=== PATIENT | male | born 1980 | race Caucasian/White ===

== ENCOUNTER 2020-01-19 01:29 | Observation (INO) | payer SELFPAY ==
[2020-01-19] VITALS (10 sets, daily range): BP systolic 158–245; BP diastolic 93–172; PULSE 81–113; RESP 14–24; TEMP 36.3–36.7; O2SAT 95–97; BMI 33.2
--- NOTE | 2020-01-19 01:41 | ED_ITS ---
Entered by Shari Lala, acting as scribe for Александр Hebert MD HPI - Abdominal Pain General: Chief Complaint: Abdominal Pain Stated Complaint: abd pain and pressure Time Seen by Provider: 01/19/20 01:38 Source: patient and family History of Present Illness: HPI narrative: 39 y/o male presents to the ED with complaint of abd pain. Pt states he feels like his intestines are trying to come out of his belly button . Family states this has been progressing for the past 4-5 days. He has no previous dx of hernia or abd pain. Pt also has chronic high BP and states the pain seems to be making that worse. Upon exam, pts BP is 244/142. MD elicited complaint: abdominal pain Pertinent past history: none Onset (ago): day(s) (4-5) Pain Consistency: constant Location: Periumbilical Severity: severe Exacerbating factors: movement Associated Symptoms: Denies chills, diarrhea, dysuria, fever(s), nausea and vomiting Review of Systems Const: Denies: fever, chills, body aches or change in appetite Eyes: Denies: blurry vision or eye discomfort ENMT: Denies: throat pain or dental pain Card: Denies: chest pain Resp: Denies: shortness of breath GI: Reports: abdominal pain; Denies: nausea, vomiting or diarrhea : Denies: painful urination Musc: Denies: neck pain or back pain Skin/Breast: Denies: rash Neuro: Denies: headache Psych: Denies: depression Moreno/Lymph: Denies: easy bruising All/Imm: Denies: hives PFSH ED PFSH: Social History Smoking and tobacco status: current every day smoker Physical Exam Const: COMMON NORMALS: oriented x3; apparent distress GENERAL APPEARANCE: other (in pain) NUTRITIONAL APPEARANCE: obese HENMT: COMMON NORMALS: normocephalic and head/scalp atraumatic HEAD & SCALP: normocephalic and atraumatic Eye: COMMON NORMALS: PERRL and EOMs intact bilaterally PUPIL: Yes PERRL Neck/C-Spine: COMMON NORMALS: full ROM and supple Chest: COMMONS NORMALS: inspection of chest normal and palpation of chest normal Resp: COMMON NORMALS: normal respiratory effort, no retractions, no use of accessory muscles and clear to auscultation bilaterally AUSCULTATION: clear to auscultation bilaterally Cardio: COMMON NORMALS: regular rate, regular rhythm and no murmurs RATE: regular rate RHYTHM: regular rhythm OTHER: elevated BP GI: PALPATION: Yes tender and Yes hernia umbilical Extremity: COMMON NORMALS: normal to inspection and full ROM Neuro: COMMON NORMALS: oriented x3, moves all extremities and no focal motor deficits Psych: COMMON NORMALS: mental status grossly normal, thought process normal and cooperative MOOD & AFFECT: Yes tearful THOUGHT PROCESS: normal thought process Skin: COMMON NORMALS: no rashes or lesions noted and no wounds GENERAL SKIN EXAM: no rashes or lesions noted Course Vital Signs: Vital signs: Vital Signs Temperature 98 F 01/19/20 01:33 Pulse Rate 100 01/19/20 02:07 Respiratory Rate 18 01/19/20 04:05 Blood Pressure 222/146 01/19/20 02:07 Pulse Oximetry 96 01/19/20 02:07 MDM - Abdominal Pain MDM Narrative: Medical decision making narrative: Patient presents here with abdominal pain. CT shows pancreatitis but does have a low normal lipase level. He has no signs of cholecystitis. Patient is quite hypertensive and was treated with labetalol and hydralazine and blood pressure is improving 186/102. Abdominal pain is continued and required multiple pain medicine doses. Spoke to hospitalist and will admit for his abdominal pain. Lab Data: Labs: Lab Results 01/19/20 01/19/20 01/19/20 Range/Units 01:40 01:40 03:57 WBC 15.2 H (4.0-10.0) 10^3/ uL RBC 5.23 (4.1-5.3) 10^6/u L Hgb 14.8 (11.7-16.6) g/dL Hct 44.3 (42.0-52.0) % MCV 84.7 (80-94) fL MCH 28.3 (28.0-34.0) pg MCHC 33.4 (30.0-36.0) g/dL RDW 13.5 (12.1-15.1) % Plt Count 264 (130-400) 10^3/c mm MPV 10.7 H (7.4-10.4) fL Neut % (Auto) 68.8 % Lymph % (Auto) 21.9 % Bulloch % (Auto) 6.7 % Eos % (Auto) 1.9 % Baso % (Auto) 0.3 % Neut # (Auto) 10.4 H (1.8-7.7) 10^3/u L Lymph # (Auto) 3.3 (0.8-4.8) 10^3/u L Bulloch # (Auto) 1.0 H (0.2-0.9) 10^3/u L Eos # (Auto) 0.3 (0.0-0.8) 10^3/u L Baso # (Auto) 0.1 (0.0-0.1) 10^3/u L Nucleated RBC % (a uto) 0 % Nucleated RBCs # 0.0 /100WBC Sodium 138 (136-145) mmol/L Potassium 3.4 L (3.5-5.1) mmol/L Chloride 102 (98-107) mmol/L Carbon Dioxide 23 (22-29) mmol/L Anion Gap 16.4 (5-19) BUN 15 (6-20) mg/dL Creatinine 1.0 (0.7-1.2) mg/dL GFR Calculation 84.1 L (90-130) mL/min Glucose 192 H (65-115) mg/dL Calcium 9.4 (8.5-10.5) mg/dL Total Bilirubin 0.4 (0.15-1.2) mg/dL AST 14 (0-40) U/L ALT 31 (0-41) U/L Alkaline Phosphata se 66 (40-130) IU/L Total Protein 7.6 (6.6-8.7) g/dL Albumin 4.1 (3.5-5.2) g/dL Globulin 3.5 (1.3-4.6) g/dL Lipase 27 23 (13-60) U/L Imaging Data ^: CT Abd/Pel: Radiologist's impression: [address] [address] [address] Scan Report Signed Patient: Butch Parisi #: [id number] : 1980Acct#:[id number] Age/Sex: 39 / MADM Date: 01/19/20 Loc: ERRoom/Bed: Attending Dr: Ordering Provider/Ordering MD: Александр Hebert MD Date of Service: 01/19/20 Procedure(s): CT abdomen pelvis w con* [id number] Accession Number(s): [id number] Report Number: [id number] PROCEDURE INFORMATION: Exam: CT Abdomen And Pelvis With Contrast Exam date and time: 01/19/2020 1:50 AM Age: 39 years old Clinical indication: Abdominal pain; Epigastric; Additional info: Abd pain TECHNIQUE: Imaging protocol: Computed tomography of the abdomen and pelvis with intravenous contrast. Total DLP: 1698.89 mGy-cm Radiation optimization: All CT scans at this facility use at least one of these dose optimization techniques: automated exposure control; mA and/or kV adjustment per patient size (includes targeted exams where dose is matched to clinical indication); or iterative reconstruction. Contrast material: OMNI 300; Contrast volume: 95 ml; Contrast route: 18G; COMPARISON: No relevant prior studies available. FINDINGS: Liver: Fatty liver. Gallbladder and bile ducts: No calcified stones. No ductal dilation. Pancreas: There is peripancreatic stranding about the pancreatic head. No ductal dilation. Spleen: No splenomegaly. Adrenals: No mass. Kidneys and ureters: No hydronephrosis. Stomach and bowel: Colonic diverticulosis without findings of diverticulitis. Fluid-filled loops of small bowel which may represent reactive ileus. No high-grade bowel obstruction. Minimal stranding adjacent to the proximal duodenum probably representing reactive duodenitis. Appendix: No evidence of appendicitis. Intraperitoneal space: No free air. No significant fluid collection. Vasculature: No abdominal aortic aneurysm. Lymph nodes: No enlarged lymph nodes. Bladder: Unremarkable as visualized. Reproductive: Unremarkable as visualized. Bones/joints: Unremarkable. No acute fracture. Soft tissues: Unremarkable. CT/CT abdomen pelvis w con* [id number] IMPRESSION: Acute pancreatitis. Probable mild reactive duodenitis. Radiation Dose CTDIVOL = (mGy): DLP = 1698.89 (mGy-cm) EKG Data ^: EKG 1: EKG interpretation date: 01/19/20 EKG interpretation time: 01:55 Interpretation: sinus tach hr 105 st depressin in ii and iii with no st elevation qrs 105 qtc 407 Discharge Plan Discharge Patient Disposition: Admitted As Inpatient Clinical Impression: Abdominal pain Qualifiers: Abdominal location: epigastric Qualified Code(s): R10.13 - Epigastric pain Hypertension Qualifiers: Hypertension type: essential hypertension Qualified Code(s): I10 - Essential (primary) hypertension Condition: Stable Referrals: Giovanny Hernandez NP [Primary Care Provider] - Coding Level of Care Code ED Music Director for Chg Fwd Exam Comprehensive The documentation recorded by the Spike moore Ashley, accurately reflects the service I personally performed and the decisions made by , Александр Hebert MD Jan 19, 2020 01:29
[2020-01-19 01:44] LABS: Basophils # 0.1 10^3/uL (0.0-0.1); Basophils % 0.3 %; Eosinophils # 0.3 10^3/uL (0.0-0.8); Eosinophils % 1.9 %; Hematocrit 44.3 % (42.0-52.0); Hemoglobin 14.8 g/dL (11.7-16.6); Lymphocytes # 3.3 10^3/uL (0.8-4.8); Lymphocytes % 21.9 %; Mean Corpuscular HGB Conc 33.4 g/dL (30.0-36.0); Mean Corpuscular Hemoglobin 28.3 pg (28.0-34.0); Mean Corpuscular Volume 84.7 fL (80-94); Mean Platelet Volume 10.7 fL (7.4-10.4); Monocytes % 6.7 %; Neutrophils # 10.4 10^3/uL (1.8-7.7); Neutrophils % 68.8 %; Nucleated Red Blood Cells % 0 %; Platelet Count 264 10^3/cmm (130-400); Red Blood Count 5.23 10^6/uL (4.1-5.3); Red Cell Distribution Width 13.5 % (12.1-15.1); White Blood Count 15.2 10^3/uL (4.0-10.0)
[2020-01-19] MEDS: lactated ringers 1,000 ML 999 ML IV (01:56)
[2020-01-19] MEDS: ondansetron 2 mg/ML SDV 2 mL 4 MG IVP (01:57)
[2020-01-19] MEDS: HYDROmorphone 1 mg/mL INJ 1 mL IVP ×2 (01:57→04:05)
[2020-01-19 01:58] LABS: Alanine Aminotransferase 31 U/L (0-41); Albumin Level 4.1 g/dL (3.5-5.2); Alkaline Phosphatase 66 IU/L (40-130); Anion Gap 16.4 (5-19); Aspartate Amino Transferase 14 U/L (0-40); Blood Urea Nitrogen 15 mg/dL (6-20); Calcium 9.4 mg/dL (8.5-10.5); Carbon Dioxide 23 mmol/L (22-29); Chloride 102 mmol/L (98-107); Globulin 3.5 g/dL (1.3-4.6); Glomerular Filtration Rate 84.1 mL/min (90-130); Glucose 192 mg/dL (65-115); Lipase 27 U/L (13-60); Potassium 3.4 mmol/L (3.5-5.1); Sodium 138 mmol/L (136-145); Total Bilirubin 0.4 mg/dL (0.15-1.2); Total Protein 7.6 g/dL (6.6-8.7)
[2020-01-19] MEDS: iohexol 300 mg/mL 100 mL Btl IV (02:39)
[2020-01-19] MEDS: labetalol 5 mg/mL SDV 20mL 20 MG IVP (03:01)
[2020-01-19] MEDS: hyDRALAzine 20 mg/mL INJ 1 mL 10 MG IVP ×2 (03:57→11:37)
[2020-01-19 04:21] LABS: Lipase 23 U/L (13-60)
--- NOTE | 2020-01-19 04:32 | PM.HP ---
Providers/Chief Complaint Primary Care Provider: Giovanny Hernandez NP Chief Complaint: abd pain and pressure History of Present Illness Alli Parisi is a 39 year old male who does not carry any significant past medical history other than hypertension came in with chief complaint abdominal pain. Patient is stating that his symptoms started 5 days ago. He was at rest when he started experiencing nagging epigastric abdominal pain which was 10/10 it was not associated with nausea, vomiting, fever, diarrhea, constipation. He did not seek medical attention until today when his symptoms were getting worse. His epigastric pain was radiating towards his back and umbilical region. Today he ate steak and rice and did not experience it worsening of abdominal pain, he has been drinking a lot of apple juice at home. He is smoking 1 pack/day. Denies use of alcohol, previous history of pancreatitis, gallstones. For his hypertension he has been using metoprolol and lisinopril. Diagnostics in ER showed hypertensive urgency systolic blood pressure 220/147 which improved after getting analgesics, lipase is normal however CT abdomen is showing pancreatic inflammation. Leukocytosis greater than 15, he is not tachycardic, afebrile, creatinine normal, hypokalemic, non-acidotic, BUN 15, glucose 192, Review of Systems Const: Denies: fever, chills, body aches, fatigue or malaise Eyes: Denies: change in vision ENMT: Denies: throat pain Card: Denies: chest pain Resp: Denies: shortness of breath GI: Reports: abdominal pain, bloating and cramping; Denies: nausea, vomiting, vomiting blood, coffee grounds in vomit, difficulty swallowing, heartburn/indigestion or constipation : Denies: flank pain or urinary frequency Musc: Denies: neck pain Skin/Breast: Denies: rash Neuro: Denies: headache Psych: Denies: anxiety Endo: Reports: hot flashes and heat intolerance Moreno/Lymph: Reports: easy bruising All/Imm: Denies: hives Medications/Allergies Home Medications Medication Instructions Recorded Confirmed Last Taken Type aspirin [Aspir-81] 81 mg PO DAILY 01/19/20 01/19/20 Unknown History lisinopril 2.5 mg PO DAILY 01/19/20 01/19/20 Unknown History metoprolol succinate 25 mg PO BID 01/19/20 01/19/20 Unknown History Allergies Allergy/AdvReac Type Severity Reaction Status Date / Time No Known Allergies Allergy Verified 01/19/20 01:38 PFSH Acute PFSH: Medical History (Updated 01/19/20 @ 05:18 by Del Rai MD) Hypertension Surgical History (Updated 01/19/20 @ 05:18 by Del Rai MD) Previous back surgery Family History (Updated 01/19/20 @ 05:18 by Del Rai MD) Denies family history of Diabetes CAD (coronary artery disease) Dementia Chronic kidney disease (CKD) Anesthesia complication Bleeding disorder Social History (Updated 01/19/20 @ 05:19 by Del Rai MD) Smoking and tobacco status: current every day smoker cigarettes Packs smoked per day: 1 Years cigarettes smoked: 30 Alcohol intake: never Substance/Drug Use: never Household members: spouse Housing: House Marital status: Vitals/I&O/Wt Last Vital Signs Temp 98 F 01/19/20 01:33 Pulse 100 01/19/20 02:07 Resp 18 01/19/20 04:05 BP 222/146 01/19/20 02:07 Pulse Ox 96 01/19/20 02:07 01/18/20 01/18/20 01/19/20 14:59 22:59 06:59 Intake Total 1000 / 1000 Balance 1000 / 1000 Weight last 48 hrs Weight 111.13 kg Physical Exam Narrative: EXAM NARRATIVE: obese male comfortable in his bed saturating well on room air Systolic blood pressure 186 Patient is endorsing that abdominal pain has subsided after getting analgesics, abdomen is nontender, however abdominal stria positive, umbilical hernia positive, no signs of peritonitis, epigastric region nontender, Pack sign negative, Bowel sounds present, S1-S2, no signs of heart failure, JVD or lower extremity edema Lungs are clear to auscultation Skin exam shows multiple stria, cushingoid appearance, Multiple skin tattoos Appropriate mood and affect Data : 01/19/20 01:40 01/19/20 01:40 A&P Assessment and plan (1) Abdominal pain: Status: Acute Qualifiers: Abdominal location: epigastric Qualified Code(s): R10.13 - Epigastric pain Code(s): R10.9 - Unspecified abdominal pain (2) Hypertension: Status: Acute Qualifiers: Hypertension type: essential hypertension Qualified Code(s): I10 - Essential (primary) hypertension Code(s): I10 - Essential (primary) hypertension Additional A&P Information Acute pancreatitis with normal lipase Harry criteria will be very low considering normal BUN, glucose, he has leukocytosis greater than 15 however able to tolerate his regular diet, For now I will put him on full liquid diet and advance as tolerated On literature review there are couple of cases which are reported with normal lipase with pancreatitis Cause of pancreatitis is unknown, he is a smoker, no use of alcohol, no gallstones, he is using metoprolol which has been associated with pancreatitis, no previous history of pancreatitis, I will check his triglyceride level Hypertension with hypokalemia We will check a renin aldosterone level He has cushingoid appearance I would like to rule out cushingoid syndrome, ordered 1 mg dexamethasone test at 11 PM today and will check serum cortisol at 8 AM next morning Hold metoprolol For his hypertension I would use amlodipine and lisinopril for now Check A1c level along lipid panel Obesity: Patient was counseled on weight reduction and benefits on his blood pressure He Is trying to eat healthier DVT prophylaxis: Lovenox Considering hypertension I would avoid use of fluids for now Full code Attestations Medical Necessity Statement*: Anticipating discharge in less than 48 hours, he has mild episode of pancreatitis currently doing well Time Spent in Patient Care: 45 Coding Level of Care Code Acute Grain Thresher for Brent Carranza Diagnoses Abdominal pain R10.13 Abdominal location: epigastric Hypertension I10 Hypertension type: essential hypertension
[2020-01-19] MEDS: enoxaparin 40 mg/0.4 mL Syringe SUBCUT (05:35)
[2020-01-19 05:49] LABS: Chol HDL Ratio 4.03 mg/dL (1.0-5.00); Cholesterol 153 mg/dL (0-200); HDL Cholesterol 38 mg/dL (60-100); LDL Cholesterol Calculated 90 mg/dL (50-129); LDL HDL Ratio 2.37 RATIO (0.00-3.22); Triglycerides 124 mg/dL (0-150)
[2020-01-19 05:51] LABS: Estmated Average Glucose 123; Hemoglobin A1C 5.9 % (4.0-6.0)
[2020-01-19] MEDS: amlodipine 10 mg Tablet PO (08:10)
[2020-01-19] MEDS: lisinopril 20 mg Tablet PO (08:10)
[2020-01-19] MEDS: morphine 4 mg/mL SDV 1 mL 2 MG IVP (10:33)
--- NOTE | 2020-01-19 13:31 | P.DS_ITS ---
Discharge Providers Date of Admission: 01/19/20 04:32 Date of Discharge: January 19, 2020 Attending Provider at Admission: Del Rai MD Attending Provider at Discharge: Annie Lehman MD Primary Care Provider: Giovanny Hernandez NP Diagnoses at Discharge Discharge Diagnosis (1) Abdominal pain: Status: Acute Qualifiers: Abdominal location: epigastric Qualified Code(s): R10.13 - Epigastric pain (2) Hypertension: Status: Acute Qualifiers: Hypertension type: essential hypertension Qualified Code(s): I10 - Essential (primary) hypertension Reason for Visit Reason for Visit: Reason For Visit: abd pain and pressure Hospital Course Discharge Summary: Alli Parisi is a 39 year old male with persistent hypertension (states outpatient BP >200mmhg) came in last night with chief complaint of abdominal pain started 5 days ago. He was noted to have significantly elevated blood pressure of 220/147. CT of the abdomen was done which showed peripancreatic stranding about the pancreatic head without ductal dilatation with overall impression of acute pancreatitis and probable mild reactive duodenitis. By the next morning, patient denies any complaints of abdominal pain nausea or vomiting. He tolerated clear liquid diet and insisted on getting a full meal. He did get a regular meal and tolerated it well without any adverse events. For his blood pressure, this remains consistently elevated above 205/124. He received amlodipine, lisinopril and iv hydralazine. This dropped his blood pressure to the best number of systolic of 173. Patient insisted on returning home today and did not wish to stay in the hospital any longer. It was strongly counseled that the blood pressure be brought under better control, however he states that this is been an ongoing work in progress as an outpatient. He routinely has blood pressures over 200 and has previously had anginal-like symptoms, however states that this does not bother him and insists on returning home in spite of counseling. He was also advised to undergo a repeat CBC to follow-up on leukocytosis of 15 especially given the pancreatic inflammation noted on CT, however he declined this as well. It is been counseled that this is a high risk discharge only per patient request and he should have close follow-up with his primary care provider in the next 1 to 3 days. He states he will make appointment for the same. Advised to keep a blood pressure chart at home. New medication hydralazine has been added. Physical Exam Narrative: EXAM NARRATIVE: GEN: Awake, alert and oriented, no acute distress CVS: S1S2 N RS: CTA B/L Abd: Soft, nt/nd , bs+ DIRECTOR OF DATABASE MARKETING: no focal neuro deficits Discharge Data Data Completed and Pending: Completed Studies During Hospitalization Category Date Time Status CT abdomen pelvis w con* [id number] Urge nt Cat Scan 01/19/20 01:43 Completed Pending at discharge Category Date Time Status Aldosterone Stat Lab 01/19/20 01:40 Received Complete Blood Co unt w/Auto AM LABS Lab 01/20/20 04:00 Ordered Complete Blood Co unt w/Auto Stat Lab 01/19/20 13:17 Ordered Comprehensive Met abolic Panel AM LA BS Lab 01/20/20 04:00 Ordered Cortisol ,Free,LC /MS, S Routine Lab 01/20/20 08:00 Ordered Labs from last 24 hours 01/19/20 01/19/20 01/19/20 03:57 01:40 01:40 WBC RBC Hgb Hct MCV MCH MCHC RDW Plt Count MPV Neut % (Auto) Lymph % (Auto) [place] % (Auto) Eos % (Auto) Baso % (Auto) Neut # (Auto) Lymph # (Auto) [place] # (Auto) Eos # (Auto) Baso # (Auto) Nucleated RBC % (a uto) Nucleated RBCs # Sodium Potassium Chloride Carbon Dioxide Anion Gap BUN Creatinine GFR Calculation Glucose Estimat Average Gl ucose 123 Hemoglobin A1c 5.9 Calcium Total Bilirubin AST ALT Alkaline Phosphata se Total Protein Albumin Globulin Triglycerides 124 Cholesterol 153 LDL Cholesterol, C alc 90 HDL Cholesterol 38 L LDL/HDL Ratio 2.37 Cholesterol/HDL Ra james 4.03 Lipase 23 01/19/20 01/19/20 01:40 01:40 WBC 15.2 H RBC 5.23 Hgb 14.8 Hct 44.3 MCV 84.7 MCH 28.3 MCHC 33.4 RDW 13.5 Plt Count 264 MPV 10.7 H Neut % (Auto) 68.8 Lymph % (Auto) 21.9 [place] % (Auto) 6.7 Eos % (Auto) 1.9 Baso % (Auto) 0.3 Neut # (Auto) 10.4 H Lymph # (Auto) 3.3 [place] # (Auto) 1.0 H Eos # (Auto) 0.3 Baso # (Auto) 0.1 Nucleated RBC % (a uto) 0 Nucleated RBCs # 0.0 Sodium 138 Potassium 3.4 L Chloride 102 Carbon Dioxide 23 Anion Gap 16.4 BUN 15 Creatinine 1.0 GFR Calculation 84.1 L Glucose 192 H Estimat Average Gl ucose Hemoglobin A1c Calcium 9.4 Total Bilirubin 0.4 AST 14 ALT 31 Alkaline Phosphata se 66 Total Protein 7.6 Albumin 4.1 Globulin 3.5 Triglycerides Cholesterol LDL Cholesterol, C alc HDL Cholesterol LDL/HDL Ratio Cholesterol/HDL Ra james Lipase 27 Vitals: Last Vital Signs Temp 98.1 F 01/19/20 11:01 Pulse 87 01/19/20 11:01 Resp 18 01/19/20 11:01 BP 205/124 01/19/20 11:01 Pulse Ox 97 01/19/20 11:01 Discharge Plan Discharge Patient Disposition: Home, Self-Care Condition: Stable Prescriptions: New amlodipine 10 mg Tablet 10 mg PO DAILY 30 Days Qty: 30 RF: 0 hydralazine 10 mg tablet 10 mg PO TID 30 Days Qty: 90 RF: 0 Continued Aspir-81 81 mg Tablet,Delayed Release (Dr/Ec) 81 mg PO DAILY RF: 0 metoprolol succinate 25 mg Tablet Extended Release 24 Hr 25 mg PO BID RF: 0 lovastatin 10 mg Tablet 10 mg PO DAILY RF: 0 lisinopril 20 mg Tablet 2.5 mg PO DAILY Qty: 0 RF: 0 Discharge Orders: Discharge Order (Routine); Ordered 01/19/20 Ordered By: Annie Lehman Referrals: Giovanny Hernandez NP [Primary Care Provider] - 01/21/20 9:30 am Discharge Diet: Cardiac and Low Salt Discharge Activity: Resume usual activity Activity Restrictions/Additional Instructions: strongly advised to maintain BP chart at least twice daily and close follow up with primary care provider in the next 1-3 days. Discharge Attestations Time Spent in Discharge Care*: less than 30 min Quality Metrics Clinical Quality Measures During this hospital stay, did patient experience: None Coding Level of Care Code Acute Log Handling Equipment Operator for Chg Fwd Diagnoses Abdominal pain R10.13 Abdominal location: epigastric Hypertension I10 Hypertension type: essential hypertension
== END 2020-01-19 13:50 | disposition home or self-care (01) ==
LOC: ER 04:41 → MEDSURG 06:09
PROVIDERS: Admitting Provider Internal Medicine; Emergency Provider Emergency Medicine; PCP Nurse Practitioner Family; Visit Provider Student in an Organized Health Care Education/Training Program
DX: R10.13 Epigastric pain (principal); I10 Essential (primary) hypertension; Z79.82 Long term (current) use of aspirin; F17.210 Nicotine dependence, cigarettes, uncomplicated
CPT/HCPCS: 12345; 36415; 74177; 80053; 80061; 82088; 83036; 83690; 85025; 96360; 96365; 96372; 96374; 96375; 96376; 99283; 99285; G0378; J0360; J1170; J1650; J2270; J2405; J3490; Q9967

== ENCOUNTER → 2020-04-03 11:00 | Outpatient (BNVA) | payer SELFPAY | PROVIDERS: PCP Nurse Practitioner Family; Visit Provider Nurse Practitioner Family | DX: I10 Essential (primary) hypertension (principal); I50.9 Heart failure, unspecified | CPT/HCPCS: 80053; 81001; 82306; 84439; 84443; 84481; 85025 ==

== ENCOUNTER → 2020-05-08 15:20 | Outpatient (BNVA) | payer SELFPAY | PROVIDERS: PCP Nurse Practitioner Family; Visit Provider Nurse Practitioner Family | DX: I10 Essential (primary) hypertension (principal); R53.83 Other fatigue; D64.9 Anemia, unspecified | CPT/HCPCS: 80053; 82607; 83540; 84403; 85025 ==

== ENCOUNTER → 2020-08-29 13:27 | Outpatient (BNVA) | payer SELFPAY | PROVIDERS: PCP Nurse Practitioner Family; Visit Provider Family Medicine Adult Medicine | DX: N18.2 Chronic kidney disease, stage 2 (mild) (principal); R73.03 Prediabetes; I50.9 Heart failure, unspecified; R53.83 Other fatigue; E78.2 Mixed hyperlipidemia; I10 Essential (primary) hypertension | CPT/HCPCS: 80053; 80061; 83036; 83880; 85025 ==

== ENCOUNTER 2020-09-25 13:57 | Outpatient (CLI) | payer SELFPAY ==
--- NOTE | 2020-09-25 14:15 | USCV_ITS ---
Alli Parisi Age: 40 Gender: M : 1980 Exam Date: 09/25/2020 14:18 Ordering Phys: Piero Vergara MD Technologist: Angela Martinez [place] [facility] [place]: UNCONTROLLED HYPERTENSION, DECREASED GFR Aortic Velocity @ SMA (cm/s) 90.2 RIGHT KIDNEY LEFT KIDNEY Velocity (cm/s) Velocity (cm/s) Sys/Higgins Sys/Higgins Resistive Index Resistive Index 141.1 / 54.7 0.61 Proximal Renal Artery 106.6 / 35.5 0.67 135.8 / 44.1 0.68 Mid Renal Artery 95.7 / 27.3 0.71 139.4 / 52.9 0.62 Distal Renal Artery 99.8 / 42.4 0.58 124.1 / 44.2 0.64 Hilar 151.7 / 56.5 0.63 90.2 / 41.0 0.55 Upper Pole 52.4 / 25.1 0.52 39.5 / 12.2 0.69 Mid Pole 103.9 / 45.1 0.57 86.1 / 32.8 0.62 Lower Pole 89.4 / 29.4 0.67 1.60 Renal Aortic Ratio 1.18 Accleration Index (cm/sec2) 993.00 Hilar 1051.0 0 995.00 Upper Pole 797.00 782.00 Mid Pole 1226.0 0 780.00 Lower Pole 722.00 101.8 Kidney Length (mm) 115.8 CONCLUSIONS Normal color flow Doppler, peak systolic velocities, Renal/Aortic peak systolic velocity ratio and resistive indices noted in bilateral main, segmental and interlobar renal arteries. Technical difficult exam due to body habitus. Carlito Gallegos MD (Electronically Signed) Final Date: 25 September 2020 17:04 S
== END 2020-09-25 13:58 | disposition home or self-care (01) ==
LOC: US 14:03
PROVIDERS: PCP Nurse Practitioner Family; Visit Provider Family Medicine Adult Medicine
DX: I10 Essential (primary) hypertension (principal); N18.2 Chronic kidney disease, stage 2 (mild)
CPT/HCPCS: 93975

== ENCOUNTER → 2020-11-21 15:38 | Outpatient (BNVA) | payer SELFPAY | PROVIDERS: PCP Nurse Practitioner Family; Visit Provider Internal Medicine Cardiovascular Disease | DX: R06.02 Shortness of breath (principal); R07.89 Other chest pain; R94.31 Abnormal electrocardiogram [ECG] [EKG]; I50.33 Acute on chronic diastolic (congestive) heart failure; I50.9 Heart failure, unspecified | CPT/HCPCS: 80048; 83880 ==

== ENCOUNTER 2020-12-08 13:12 | Outpatient (CLI) | payer SELFPAY ==
--- NOTE | 2020-12-08 13:30 | USCV_ITS ---
Alli Parisi Age: 40 Gender: M : 1980 Exam Date: 12/08/2020 13:27 Ordering Phys: Pedro Mccall MD ([email or web address]) Technologist: Barbara Gonzalez Exam Location: [facility] – [place] Indication: CHEST PAIN BP: 162 / 110 HR: 80 Rhythm: Sinus Technical Quality: Very technically difficult study MEASUREMENTS (Male / Female) Normal Values 2D ECHO LV Diastolic Diameter PLAX 4.0 cm 4.2 - 5.9 / 3.9 - 5.3 cm LV Systolic Diameter PLAX 2.2 cm LV Chamber Size 3.5 cm IVS Diastolic Thickness 2.5 cm 0.6 - 1.0 / 0.6 - 0.9 cm IVS Systolic Thickness 3.5 cm LVPW Diastolic Thickness 2.2 cm 0.6 - 1.0 / 0.6 - 0.9 cm LVPW Systolic Thickness 2.3 cm RV Chamber Size 3.1 cm LVOT Diameter 2.1 cm LV Ejection Fraction 2D Teich 77.6 % LA Diameter 4.3 cm LA Width 2.4 cm LA Height 4.5 cm RA Width 4.0 cm RA Height 3.9 cm Aorta at Sinotubular Diameter 3.5 cm M-MODE LV Diastolic Diameter MM 5.8 cm 4.2 - 5.9 / 3.9 - 5.3 cm LV Systolic Diameter MM 3.3 cm LV Ejection Fraction MM Teich 73.4 % IVS Diastolic Thickness MM 1.6 cm 0.6 - 1.0 / 0.6 - 0.9 cm IVS Systolic Thickness MM 1.8 cm LVPW Diastolic Thickness MM 1.1 cm 0.6 - 1.0 / 0.6 - 0.9 cm LVPW Systolic Thickness MM 1.6 cm Aortic Annulus Diameter 4.0 cm LA Ao Ratio MM 1.4 MV E Point Septal Separation 0.6 cm DOPPLER LVOT Peak Velocity 94.0 cm/s MV Area PHT 3.9 cm squared Mitral E to A Ratio 0.8 MV E' Velocity 26.5 cm/s Mitral E to MV E' Ratio 8.1 Mitral E to LV E' Lateral Ratio 7.7 Mitral E to LV E' Septal Ratio 8.6 TR Peak Velocity 188.6 cm/s TR Peak Gradient 14.2 mmHg TR Mean Velocity 111.3 cm/s TR Mean Gradient 6.1 mmHg TR Velocity Time Integral 39.4 cm TV Peak E Velocity 70.0 cm/s PV Peak Velocity 56.0 cm/s RV Acceleration Time 0.1 s RV Ejection Time 0.4 s RV AcT/ET 0.4 FINDINGS Left Ventricle Normal left ventricular size and systolic function, EF 65%.no regional wall motion abnormalities. Right Ventricle The right ventricle is normal in size and function. Right Atrium The right atrium is normal in size. Left Atrium The left atrium is normal in size. Mitral Valve No gross abnormalities noted Aortic Valve No gross abnormalities noted Tricuspid Valve No gross abnormalities noted Pulmonic Valve Pulmonic valve not well visualized. Pericardium Normal pericardium without effusion. Aorta Normal aortic annulus size. CONCLUSIONS Normal left ventricular size and systolic function, EF 65%. No regional wall motion abnormalities. No significant extremity valvular lesions. Normal cardiac chamber sizes. There is no pericardial effusion. There are no intracardiac masses. No previous study is available for comparison. Dr Pedro Mccall MD FACC (Electronically Signed) Final Date: 08 December 2020 16:39 S
== END 2020-12-08 13:13 | disposition home or self-care (01) ==
LOC: US 13:13
PROVIDERS: PCP Nurse Practitioner Family; Visit Provider Internal Medicine Cardiovascular Disease
DX: R07.89 Other chest pain (principal)
CPT/HCPCS: 93306

== ENCOUNTER 2020-12-19 20:00 | Outpatient (CLI) | payer SELFPAY | END 2020-12-19 20:01 | disposition home or self-care (01) | LOC: SLEEP 12-20 10:13 | PROVIDERS: PCP Nurse Practitioner Family; Visit Provider Internal Medicine Cardiovascular Disease | DX: G47.33 Obstructive sleep apnea (adult) (pediatric) (principal) | CPT/HCPCS: 95811 ==

== ENCOUNTER 2021-04-30 20:00 | Outpatient (CLI) | payer SELFPAY | END 2021-04-30 20:01 | disposition home or self-care (01) | LOC: SLEEP 05-01 08:53 | PROVIDERS: PCP Family Medicine Adult Medicine; Visit Provider Internal Medicine Cardiovascular Disease | DX: G47.33 Obstructive sleep apnea (adult) (pediatric) (principal) | CPT/HCPCS: 95811 ==

== ENCOUNTER 2021-06-20 10:42 | Day surgery (SDC) | payer MEDICAID, SELFPAY ==
[2021-06-19 17:41] VITALS: BMI 43.4
[2021-06-20 10:56] VITALS: BP 174/124; PULSE 83; RESP 20; TEMP 36.4; O2SAT 98
--- NOTE | 2021-06-20 11:00 | W.PM.OPSFHP ---
Same Day Surgery H&P Indication for Procedure/HPI DATE OF PROCEDURE: June 20, 2021 CHIEF COMPLAINT/INDICATIONFOR SURGICAL PROCEDURE: Incarcerated umbilical hernia requiring hernia repair PREOP DIAGNOSIS: Incarcerated umbilical hernia PLANNED PROCEDRUE: Operation Date: 06/20/21 12:20 Proposed Procedures p Laparoscopic Umbilical Hernia Repair [id number] K42.9(Not Applicable) - Allan Rebollar MD Medications/Allergies* Home Medications Medication Instructions Recorded Confirmed Type cholecalciferol (vitamin D3) 1 ea PO DAILY 11/21/20 06/20/21 History gemfibrozil 600 mg PO DAILY 06/19/21 06/20/21 History Allergies/Adverse Reactions Allergy/AdvReac Type Severity Reaction Status Date / Time lisinopril AdvReac Intermediate cough Verified 05/28/21 13:16 Pertinent History/Comorbid Conditions* Medical History (Updated 05/28/21 @ 14:00 by Allan Rebollar MD) Congestive heart failure Diastasis recti Mixed hyperlipidemia Obstructive sleep apnea syndrome, severe Prediabetes Uncontrolled hypertension Surgical History (Updated 01/19/20 @ 05:18 by Del Rai MD) Previous back surgery Family History (Updated 11/21/20 @ 14:48 by Rosalba Kiran RN) Diabetes Grandfather Grandmother Hypertension Father Mother Stroke Father Denies family history of Clotting disorder Dementia Chronic kidney disease (CKD) Anesthesia complication Bleeding disorder Lung disease Cancer Social History Smoking and tobacco status: current every day smoker cigarettes Packs smoked per day: 1 Years cigarettes smoked: 30 Second hand smoke exposure: Yes Alcohol intake: never Desire information about substance/drug rehabilitation?: No Household members: spouse Housing: House Marital status: Current occupational status: unemployed Pertinent Exam Findings alert, oriented x 3 and regular rate & rhythm Recommendations Surgery/Procedure today Coding Level of Care Code Acute Briquetter Operator for Brent Carranza
[2021-06-20] MEDS: sodium chloride 0.9% 1,000 ML 30 ML IV (11:09)
[2021-06-20 11:14] LABS: Glucose Point of Care 153 mg/dL (70-110)
[2021-06-20 12:25] LABS: Blood Urea Nitrogen 11 mg/dL (6-20); Calcium 8.5 mg/dL (8.5-10.5); Carbon Dioxide 24 mmol/L (22-29); Chloride 103 mmol/L (98-107); Glomerular Filtration Rate 126.2 mL/min (90-130); Glucose 129 mg/dL (65-115); Osmolality Calculated 289 mOsm/kg (285-295); Sodium 139 mmol/L (136-145)
[2021-06-20 12:34] LABS: Anion Gap 15.9 (5-19); Potassium 3.9 mmol/L (3.5-5.1)
--- NOTE | 2021-06-20 12:54 | PC.NURSE ---
pt arrived and was prepped for procedure. during the anesthesia evaluation it was determined that the pt was in need of a cardiac work up due to issues with chest pain. it was then determined that the procedure could not go forward pt was sent home with instructions to contact heart care services.
--- NOTE | 2021-06-20 13:29 | P.MISC_ITS ---
Miscellaneous Note Note: Procedure postponed d/t need for stress/perfusion test ordered by electrician maintenance Dr Mccall back in April. ? Patient did not attend appointment.
--- NOTE | 2021-06-20 13:29 | PM.MISC ---
Miscellaneous Note Note: Procedure postponed d/t need for stress/perfusion test ordered by home health administrator Dr Mccall back in April. ? Patient did not attend appointment.
== END 2021-06-20 12:57 | disposition home or self-care (01) ==
LOC: OR 10:44
PROVIDERS: Anesthesiology; PCP Family Medicine Adult Medicine; Visit Provider Surgery
PROC: 0WQF4ZZ Repair Abdominal Wall, Percutaneous Endoscopic Approach (ICD-10-PCS; principal; 2021-06-20 12:10)
DX: K42.9 Umbilical hernia without obstruction or gangrene (principal); Z53.8 Procedure and treatment not carried out for other reasons; I11.0 Hypertensive heart disease with heart failure; I50.9 Heart failure, unspecified; E78.2 Mixed hyperlipidemia; G47.33 Obstructive sleep apnea (adult) (pediatric); R73.03 Prediabetes; Z83.3 Family history of diabetes mellitus; Z82.49 Family history of ischemic heart disease and other diseases of the circulatory system; F17.210 Nicotine dependence, cigarettes, uncomplicated
CPT/HCPCS: 36415; 36416; 80048; 82962; J2704; J3010; J3490; J7030

== ENCOUNTER 2021-07-27 11:47 | Outpatient (CLI) | payer MEDICAID, SELFPAY ==
--- NOTE | 2021-07-27 12:00 | ECG_ITS ---
[facility] Test Date: 2021-07-27 Pat Name: Alli Parisi Department: Room: Gender: Male Coordinator Of Genetic Services: Junie Leal : 1980 Requested By: Pedro Mccall Order Number: [id number] Gladis MD: Pedro Mccall M.D. Interpretive Statements NAME OF STUDY: LEXISCAN SESTAMIBI STRESS TEST INDICATION: Chest Pain, PROCEDURE: At the baseline, the EKG revealed normal sinus rhythm with nonspecific ST-T changes in the high lateral leads. The baseline blood pressure was 174/114 mm Hg with a heart rate of 79 beats/min. Lexiscan was infused over a period of 20 seconds. A total of 0.4 milligrams of Lexiscan was infused. The stress phase was continued for a total of 5 minutes. Heart rate at the end of the stress phase was 91 with a blood pressure 147/105. The EKG at the peak infusion revealed no significant changes. Sestamibi was injected 20 seconds after the Lexiscan infusion. Blood pressure at the end of the recovery phase was 152/98 with a heart rate of 90 per minute. CONCLUSION: 1. No significant EKG changes with the LexiScan infusion 2. No LexiScan induced chest pain or cardiac arrhythmia 3. Normal blood pressure and heart rate response 4. Sestamibi/sestamibi perfusion scan pending; see separate report. Electronically Signed On 08-09-2021 0:18:11 CDT by Pedro Mccall M.D. [id number]
--- NOTE | 2021-07-27 12:00 | NMCV_ITS ---
NM salo perf SPECT r/s* [id number] Alli Parisi Age: 40 Gender: M : 1980 Exam Date: 07/27/2021 12:55 Ordering Phys: Pedro Mccall MD ([email or web address]) Technologist: DEAN Landeros Exam Location: [facility] Indications: SHORTNESS OF BREATH STRESS TEST Please [facility] IMAGE PROTOCOL Rest/Stress 1 Lexiscan Day Radiopharmaceutical Dose (mCi) Administration Site Administered by Rest: Tc-99m 11.0 IV DEAN Maldonado Sestamibi Stress:Tc-99m 33.0 IV DEAN Maldonado Sestamibi Rest: 27-Jul-2021 60 Discovery 630 Stress: 27-Jul-2021 30 Discovery 630 0.4mg Lexiscan. Supine position only as patient was unable to lay prone. SPECT RESULTS Technical Quality: Excellent Raw Data Analysis: Normal, Soft tissue attenuation Image Corrections: No attenuation or motion correction applied Summed Stress Score: 3 Summed Rest Score: 1 Summed Difference Score: 2 PERFUSION FINDINGS Small to moderate area of decreased tracer uptake was noted in the basal, mid and apical inferior wall regions. Significant reversibility was noted in the mid inferior wall region. FUNCTIONAL RESULTS (calculated via Gated SPECT) Stress Image LV EF (%): 58 Stress EDV (mL):178 TID: 0.98 Stress ESV (mL):75 FUNCTIONAL FINDINGS: Segmental wall motion analysis revealing no gross wall motion abnormalities IMPRESSIONS 1. Myocardial perfusion imaging revealing small to moderate area of decreased tracer uptake in the inferior wall region, with some reversibility at the mid inferior region, suggestive of myocardial scarring with ischemia in the distribution of the right coronary artery. 2. Normal LV ejection fraction 58%. 3. LV wall motion analysis revealing no gross wall motion abnormalities. 4. Mildly dilated LV cavity with an end-systolic volume of 75 mL No similar previous studies are available for comparison Dr Pedro Mccall MD FAC (Electronically Signed) Final Date: 27 July 2021 14:27 S
[2021-07-27 12:04] VITALS: BMI 40.6
[2021-07-27 13:35] VITALS: BP 140/99; PULSE 90
[2021-07-27] MEDS: regadenoson 0.4 Mg/5 ml Syringe IVP (13:35)
== END 2021-07-27 11:48 | disposition home or self-care (01) ==
LOC: RAD 11:49 → CDL 12:03
PROVIDERS: PCP Family Medicine Adult Medicine; Visit Provider Internal Medicine Cardiovascular Disease
DX: R07.9 Chest pain, unspecified (principal); R06.02 Shortness of breath; I25.9 Chronic ischemic heart disease, unspecified; Z20.828 Contact with and (suspected) exposure to other viral communicable diseases
CPT/HCPCS: 78452; 87635; 93017; A9500; J2785

== ENCOUNTER → 2021-08-22 10:19 | Outpatient (BNVA) | payer MEDICAID, SELFPAY | PROVIDERS: PCP Family Medicine Adult Medicine; Visit Provider Internal Medicine Cardiovascular Disease | DX: R94.39 Abnormal result of other cardiovascular function study (principal); I50.32 Chronic diastolic (congestive) heart failure; Z01.818 Encounter for other preprocedural examination | CPT/HCPCS: 80048; 85025; 85610; 86850; 86900; 87635 ==

== ENCOUNTER 2021-08-27 06:10 | Day surgery (SDC) | payer MEDICAID, SELFPAY ==
[2021-08-27] VITALS (14 sets, daily range): BP systolic 129–163; BP diastolic 88–117; PULSE 63–86; RESP 12–21; TEMP 37.1; O2SAT 93–97; BMI 46.9
--- NOTE | 2021-08-27 06:34 | XACV_ITS ---
Ht: 183 cm Wt: 157 kg BSA: 2.90 m2 Gender: Male : 1980 Any Known Allergies: Other Exam Priority: Routine Procedure(s): Procedure Description: Diagnostic procedure Procedure Description: Coronary Angiography Cal HARLEY; Diagnostic Cath Status: Elective Diagnostic Findings * The left main was found to have a low and anterior takeoff. Right brachiocephalic trunk was originating near to the left side of the aortic arch. Engaging the left main was technically very challenging. Multiple catheters were tried and finally the angiogram was performed with a Kwesi catheter. The * l * eft main is a medium to large caliber short vessel which appears to bifurcate to the left anterior descending and circumflex artery. No significant elevations were noted.. * Left anterior descending artery is a medium caliber vessel which appears to wrap around the LV apex. Mild diffuse intimal irregularities are noted in the proximal and mid segment of the artery. The first diagonal branch of the artery was found to have around 40% ostial narrowing. No other significant stenotic lesions were noted. * The left circumflex artery is a medium caliber vessel which was found to have mild diffuse eccentric narrowing of around 20 to 30% in the mid segment of the artery. No significant stenotic lesions were noted. The artery appears to be nondominant. * Right coronary artery is a medium to large caliber dominant vessel with mild diffuse intimal irregularities. * No significant stenotic lesions were noted. Conclusions 1. This is a 40-year-old white male with history of hypertension, dyslipidemia, diastolic heart failure, obstructive sleep apnea and morbid obesity presented with some atypical chest symptoms, increasing shortness of breath with activities and easy fatigability. He had a myocardial perfusion imaging which revealed a small areas of reversible defect in the distribution of the right coronary artery. In view of his ongoing symptoms and the multiple risk factors for coronary artery disease, in order to further evaluate the coronary status a cardiac catheterization was recommended. Patient underwent left heart catheterization with left and right coronary angiogram today. The findings are as follows. 2. Left main has a low and anterior takeoff. The brachiocephalic trunk was originating near to the left side of the aortic arch . Mild diffuse plaques were noted in all the 3 coronary arteries. No significant stenotic lesions were noted. Right dominant coronary circulation. Features of left ventricular diastolic dysfunction with an LVEDP of 26 mmHg. Recommendations * Continue current medical management and risk factor modification. Diagnostic RX Recommendation: medical therapy and/or counseling LV EDP: 26 mmHg Left Ventriculography Findings: * LV gram was not performed because of the concern of the dye overload. The LV EDP was measured to be 26 mmHg. Pressures Phase:Rest AO : 176 / 85 ( 105 ) @ 7:08:00 AM 230 / 134 ( 228 ) @ 7:50:00 AM 162 / 106 ( 134 ) @ 7:50:00 AM 176 / 108 ( 141 ) @ 7:51:00 AM LV : 180 / 5 / 26 @ 7:50:00 AM 175 / 4 / 27 @ 7:50:00 AM Valves Phase:DefaultPhase AV : 12.0 @ 8:58:29 AM AV Mean Gradient: 27.0 @ 8:58:29 AM Clinical Evaluation EBL: 5mL-10mL Procedural Details Procedure Consent Obtained. Pre-Procedure Time Out. Identified patient by full name and date of as verbalized by the patient/guarantor. Does the consent match the physician's order: Yes. Accurate & Complete Informed Consent: Yes. Inpatient/Outpatient History & Physical on Chart: Yes. If H&P is completed, is and addenduem needed: No; If yes, is the addendum complete: N/A. Visualize and Verify Site with Patient/Guarantor: N/A. Relevant Radiology Images available: Yes. Pre-op teaching completed and patient verbalized understanding. The risks, benefits, and alternatives of sedation and/or procedure were discussed by physician. The patient agrees to continue. Procedure started. Correct patient, site and procedure confirmed by cath team. Current diagnosis: Chest Pain. PERRLA. 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 Lungs clear x 5 lobes. IV Site on Arrival: 20 gauge in the left anticubital. IV Fluids: 0.9% NaCl at KVO. 0 mL infused prior to organic lab worker. Pre Procedural Pulses: bilateral radial was 3+. Oxygen started at 2liters/min via nasal canula. bilateral groins was prepped with chloroprep then draped in the usual sterile fashion. right radial was prepped with chloroprep then draped in the usual sterile fashion. Physician notified. Baseline sample Acquired. HR: 76 BPM. Physician arrived. Equipment: 6F - Radial. ACIST Manifold Kit Model BT 2000. Cardiac Cath Pack. Heparinized Saline (2 units/mL), 1000 mL bag. Physician scrubbed in. Immediate Pre-Procedure Time Out. Correct Patient: Yes; Correct Procedure: Yes; Correct Site: Yes; Correct Patient Position: Yes; Correct Supplies: Yes; Dried Flammable Prep: Yes; Blood Products Available: No;. Lidocaine 1% infiltrated to the right radial. Arterial access obtained. A 6 guyanese Kwesi catheter in over wire. Catheter out. A 6 guyanese TIG catheter in over wire. Catheter out. A 5 guyanese AL2 catheter in over wire. Catheter out. A 5 guyanese AL3 catheter in over wire. Catheter out. A 5 guyanese AL1 catheter in over wire. Catheter out. A 5 guyanese JL4 catheter in over wire. Catheter out. A 5 guyanese Kwesi catheter in over wire. Multiple views taken of left coronary artery. Catheter out. A 5 guyanese JR4 catheter in over wire. Multiple views taken of right coronary artery. Catheter out. A 6 guyanese 125cm Angled Pig catheter in over wire. Catheter out. A 5 guyanese Kwesi catheter in over wire. EDP Sample taken: LV 180/5,26; HR: 80 BPM; SpO2: 100%. Pullback taken: LV 175/4,27; AO 162/106(134); Mean: 27mmHg, Peak to Peak: 12mmHg, SEP: 7sec/min; HR: 75 BPM; SpO2: 100%. LV gram performed in ANG @ 10 mL/second for a total of 30 mL. Catheter out. TR band placed. Hemostasis obtained. A TR Band was successful obtaining hemostatsis at the Right Radial artery insertion site. Post Procedure: Pulses reassessed and unchanged. PERRLA. 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 No VTE prophylaxis required. Medication's Wasted: Nitro = 49.7 mg. Medication's Wasted: Lidocaine 1% = 18 mL. Medication's Wasted: Heparin = 1000 units. Total IV fluids: 258 mL. Post-op diagnosis: Mild Cad, Elevated EDP. Complications: None. Estimated blood loss: 5mL-10mL. Contrast type used: Omnipaque 300 mgI/mL, 500 mL bottle. Vital chart was stopped. Patient transferred by wheelchair to CPRU. Access Site Site: Right Radial artery Sheath Size: 6 Fr Hemostasis Method: TR Band Hemostasis Success: Successful Procedure Medications Start: 7:47 AM Stop: 7:47 AM Medication: Versed Amount: 1 mg Route: I.V. Start: 7:47 AM Stop: 7:47 AM Medication: Fentanyl Amount: 50 mcg Route: I.V. Start: 7:55 AM Stop: 7:55 AM Medication: Verapamil Amount: 5 mg Route: I.A. Start: 7:56 AM Stop: 7:56 AM Medication: Nitrogylcerin Amount: 200 mcg Route: I.A. Start: 7:56 AM Stop: 7:56 AM Medication: 0.9% Saline Amount: 200 ml Route: I.V. bolus Start: 7:59 AM Stop: 7:59 AM Medication: Heparin Amount: 5000 units Route: I.V. Start: 8:15 AM Stop: 8:15 AM Medication: Versed Amount: 1 mg Route: I.V. Start: 8:25 AM Stop: 8:25 AM Medication: Nitrogylcerin Amount: 100 mcg Route: I.A. I, the attending physician, have reviewed and verified all procedure medications. Yes, all medications given per verbal order History/Risk Factors Hypertension: Yes Dyslipidemia: Yes Peripheral Arterial Disease (PAD): No Myocardial Infarction ([place]): No Obesity: Yes Renal Disease: No Tobacco Use: Current/Recent(w/in 1 year) Prior Interventions PCI: No CABG: No Valve Surgery: No Report Signatures Finalized by Dr Pedro Mccall MD [facility] on 08/27/2021 09:32 AM
[2021-08-27] MEDS: diphenhydrAMINE 50 mg Capsule PO (07:04)
--- NOTE | 2021-08-27 07:15 | W.PM.OPSUD ---
Surgery/Procedure H&P Update DATE OF PROCEDURE: August 27, 2021 DATE H&P PERFORMED: 08/16/21 H&P UPDATE INFORMATION: I have reviewed H&P completed within last 30 days, I have examined patient prior to procedure and No changes to prior documentation PREOP DIAGNOSIS: ASHD PRIMARY INDICATION FOR PROCEDURE: Chest pain, shortness of breath, abnormal myocardial perfusion imaging; history of heart failure, high blood pressure and dyslipidemia PLANNED PROCEDURE: Operation Date: 08/27/21 07:00 Proposed Procedures p Cardiac Catheterization(Left) - Pedro Mccall MD PATIENT REASSESSED PRIOR TO SEDATION, WITH NO CHANGE NOTED: Yes PHYSICAL EXAM: alert, oriented x 3, clear to auscultation bilaterally and regular rate & rhythm AIRWAY EVAL/ANESTHESIA PLAN: normal airway, see other exam findings, ASA II, Monitored Anesthesia, Local Anesthesia, Risks, benefits & alternatives of sedation and/or procedure discussed and Patient agrees to continue as planned
--- NOTE | 2021-08-27 09:31 | PC.NURSE ---
recovery received pt from prestressed concrete laborer post diagnostic only [facility]. pt alert and oriented upon initial evaluation. tr band in place with radial pulse palpable. no bruising or hematoma noted. pt complains of no pain. pt educated on restrictions of right wrist. partner in room and both acknowledged understanding. pt place on vitals monitor and will remain here for the duration of his recovery. will monitor pt per protocol. plans to dc in 3 hrs.
== END 2021-08-27 12:15 | disposition home or self-care (01) ==
PROVIDERS: PCP Family Medicine Adult Medicine; Visit Provider Internal Medicine Cardiovascular Disease
DX: I25.10 Atherosclerotic heart disease of native coronary artery without angina pectoris (principal); I11.0 Hypertensive heart disease with heart failure; I50.30 Unspecified diastolic (congestive) heart failure; E78.2 Mixed hyperlipidemia; Z79.82 Long term (current) use of aspirin; G47.33 Obstructive sleep apnea (adult) (pediatric); F17.210 Nicotine dependence, cigarettes, uncomplicated; E66.01 Morbid (severe) obesity due to excess calories; Z68.42 Body mass index [BMI] 45.0-49.9, adult
CPT/HCPCS: 93458; C1769; C1887; C1894; J1644; J2250; J3010; J3490; J7030; Q0163; Q9967

== ENCOUNTER → 2021-10-16 14:17 | Outpatient (BNVA) | payer OTHER, SELFPAY | PROVIDERS: PCP Family Medicine Adult Medicine; Visit Provider Surgery | DX: Z20.822 Contact with and (suspected) exposure to COVID-19 (principal) | CPT/HCPCS: 87635 ==

== ENCOUNTER 2021-10-22 05:46 | Day surgery (SDC) | payer MEDICAID, SELFPAY ==
[2021-10-19 12:58] VITALS: BMI 31.7
[2021-10-22] VITALS (10 sets, daily range): BP systolic 108–175; BP diastolic 62–120; PULSE 62–89; RESP 13–18; TEMP 36.6–36.8; O2SAT 92–95
--- NOTE | 2021-10-22 06:34 | ANES.PREANE2 ---
Pre-Anesthetic Assessment Pre-Anesthetic Assessment: Height/Weight: Height 1.83 m Weight 106.141 kg Preop Diagnosis: Umbilical hernia Proposed Procedure: Operation Date: 10/22/21 07:00 Proposed Procedures p Laparoscopic poss open Umbilical Hernia Repair [id number] k42.9(Not Applicable) - Allan Rebollar MD Familial anesthetic complications: None Was Beta Dean taken within 24 hours: Yes (Did not take carvedilol - Will give this morning) Was Clonidine taken within 24 hours: N/A Last intake: Intake Last Liquid Date 10/21/21 Last Liquid Time 22:00 Last Solid Date 10/21/21 Last Solid Time 20:00 Social: Social History: Tobacco and No alcohol Exam: Pre-Anes Outpt Exam: alert, oriented x 3, clear to auscultation bilaterally and regular rate & rhythm Additional Exam Findings (including area of procedure): Coarse breath sounds b/l Airway: Cervical ROM: WNL MP: 4 Dentition: Partials (TOp) Additional comments: Large neck circumference Pulmonary: Pulmonary: Sleep apnea CV/HEM: CV/HEM: CHF and HTN (poorly controlled) Comments: Normal cardiac cath 2020 Metabolic: Metabolic: Hyperlipidemia and Morbid obesity Anesthetic Plan: ASA status: 3 Anesthesia: General Risk of > 500 ml blood loss (7ml/kg in children): No PFSH Anesthesia PFSH: Medical History Atypical chest pain Congestive heart failure Diastasis recti Mixed hyperlipidemia Obstructive sleep apnea syndrome, severe Prediabetes SOB (shortness of breath) Uncontrolled hypertension URI (upper respiratory infection) Surgical History Previous back surgery Family History Grandfather Diabetes Grandmother Diabetes Father Hypertension Stroke Mother Hypertension Denies family history of Clotting disorder Dementia Chronic kidney disease (CKD) Anesthesia complication Bleeding disorder Lung disease Cancer Social History Second hand smoke exposure: Yes Alcohol intake: never Desire information about substance/drug rehabilitation?: No Household members: spouse Housing: House Marital status: Current occupational status: unemployed Data Anesthesia Cardiac Studies: No Data to Display
[2021-10-22] MEDS: sodium chloride 0.9% 1,000 ML 30 ML IV (06:42)
[2021-10-22] MEDS: carvedilol 25 mg Tablet PO (06:46)
--- NOTE | 2021-10-22 06:53 | W.PM.OPSUD ---
Surgery/Procedure H&P Update DATE OF PROCEDURE: October 22, 2021 DATE H&P PERFORMED: 10/16/21 H&P UPDATE INFORMATION: I have reviewed H&P completed within last 30 days, I have examined patient prior to procedure and No changes to prior documentation PREOP DIAGNOSIS: Umbilical hernia PLANNED PROCEDURE: Operation Date: 10/22/21 07:00 Proposed Procedures p Laparoscopic poss open Umbilical Hernia Repair [id number] k42.9(Not Applicable) - Allan Rebollar MD
--- NOTE | 2021-10-22 08:09 | P.OP_ITS ---
Operative Report Date of procedure: October 22, 2021 Pre-op Diagnosis: Incarcerated umbilical hernia Post-op Diagnosis: Incarcerated umbilical hernia containing omentum Procedure Done: Laparoscopic repair of incarcerated umbilical hernia with ventralight ST mesh measuring 15 x 10 cm Pathology: none sent Surgeon: Allan Rebollar Anesthesia: General Condition: stable Disposition: PACU Procedure: The patient was taken to the Operating Room and was intubated under general anesthesia after the antibiotic had been administered. The abdomen was prepped and draped in a sterile manner. Using a 15 blade, a 2-cm incision was made in the left upper quadrant in the anterior axillary line and pneumoperitoneum was created using Verres needle. A 10 mm Arianna port was placed and 15 mm of pneumoperitoneum was created after a 10 mm 30? scope had been introduced. 5 mm port was placed at the level of the umbilicus under direct visualization. Using a combination of electrocautery and scissors the peritoneum in the midline was taken down and the omental fat within the hernial sac was reduced. The falciform ligament was partially taken down using electrocautery. A spinal needle was introduced through the abdominal wall and the edges of the hernial defect were marked and measured 4 x 3 cm. A 4 cm margin was marked on the abdominal wall on the outer edge of the hernial defect. 15 x [address] mesh was selected and 4 separate 2-0 [place]-Maik sutures were placed at the 4 corners of the mesh. Grannie needle was passed through the stab incisions and used to grasp the free ends of the [place]Maik sutures which were then used to pull the mesh up against the abdominal wall; 5 mm SecurStraps were placed 1 cm apart along the edge of the mesh to hold it against the abdominal wall. At the end of this, it was noted that the mesh was well posi tioned over the hernial defect. 20 cc of saline mixed with 20cc of Exparel mixed with 20cc of 0.5% Marcaine was infiltrated in the midclavicular line bilaterally under laparoscopic visualization for a TAP block. All ports were removed under direct visualization and there was no bleeding noted from the port sites. The external oblique aponeurosis was approximated at LUQ port site using figure of eight 0 Vicryl suture. The subcutaneous tissue was approximated using 3-0 Vicryl sutures. The skin at 2 port sites were closed using subcuticular 4-0 Monocryl suture. The stab incisions and the port sites were covered with Dermabond. Abdominal binder was placed at the end of the procedure and the patient was extubated and transferred to recovery room in stable condition.
[2021-10-22] MEDS: ondansetron 2 mg/ML SDV 2 mL 4 MG IVP (08:56)
[2021-10-22] MEDS: oxyCODONE-APAP 5-325 mg Tablet 1 TAB PO (09:37)
--- NOTE | 2021-10-22 14:30 | ANE.PACU2 ---
Inpatient post-anesthesia follow up: Airway intact: Yes Vital signs: Temperature 97.8 F Pulse Rate 66 Respiratory Rate 18 Blood Pressure 124/72 Pulse Oximetry 95 Oxygen Delivery Me thod Room Air Oxygen Flow Rate 8 Fraction of Inspir ed Oxygen Hydration adequate: Yes Nausea and vomiting: No Pain level: 2 Mental status: Baseline
== END 2021-10-22 09:45 | disposition home or self-care (01) ==
PROVIDERS: PCP Family Medicine Adult Medicine; Visit Provider Surgery
PROC: 0WQF4ZZ Repair Abdominal Wall, Percutaneous Endoscopic Approach (ICD-10-PCS; CPT 49653; principal; 2021-10-22 07:00)
DX: K42.0 Umbilical hernia with obstruction, without gangrene (principal); I11.0 Hypertensive heart disease with heart failure; I50.9 Heart failure, unspecified; E78.5 Hyperlipidemia, unspecified; E66.01 Morbid (severe) obesity due to excess calories; Z68.31 Body mass index [BMI] 31.0-31.9, adult; E78.2 Mixed hyperlipidemia; G47.33 Obstructive sleep apnea (adult) (pediatric); Z82.49 Family history of ischemic heart disease and other diseases of the circulatory system; Z83.3 Family history of diabetes mellitus; Z82.3 Family history of stroke; Z79.82 Long term (current) use of aspirin
CPT/HCPCS: 49653; 96374; C1781; C9290; J0690; J1100; J1885; J2250; J2370; J2405; J2704; J2710; J3010; J3490; J7030

== ENCOUNTER → 2022-03-25 10:33 | Outpatient (BNVA) | payer BC, MEDICAID, SELFPAY | PROVIDERS: PCP Family Medicine Adult Medicine; Visit Provider Internal Medicine Cardiovascular Disease | DX: I11.0 Hypertensive heart disease with heart failure (principal); I50.32 Chronic diastolic (congestive) heart failure; I25.10 Atherosclerotic heart disease of native coronary artery without angina pectoris; G47.33 Obstructive sleep apnea (adult) (pediatric); E66.01 Morbid (severe) obesity due to excess calories; Z68.42 Body mass index [BMI] 45.0-49.9, adult; E78.2 Mixed hyperlipidemia; F17.210 Nicotine dependence, cigarettes, uncomplicated | CPT/HCPCS: 99214 ==

== ENCOUNTER → 2022-04-01 08:11 | Outpatient (BNVA) | payer BC, MEDICAID, SELFPAY | PROVIDERS: PCP Family Medicine Adult Medicine; Visit Provider Family Medicine Adult Medicine | DX: R73.03 Prediabetes (principal); E78.2 Mixed hyperlipidemia | CPT/HCPCS: 80053; 80061; 83036; 85025 ==

== ENCOUNTER → 2022-04-30 10:38 | Outpatient (BNVA) | payer BC, MEDICAID, SELFPAY | PROVIDERS: PCP Family Medicine Adult Medicine; Visit Provider Registered Nurse Neonatal Intensive Care | DX: S92.351A Displaced fracture of fifth metatarsal bone, right foot, initial encounter for closed fracture (principal); M79.671 Pain in right foot; W19.XXXA Unspecified fall, initial encounter | CPT/HCPCS: 73630 ==

== ENCOUNTER → 2022-05-01 13:30 | Outpatient (BNVA) | payer BC, MEDICAID, SELFPAY | PROVIDERS: PCP Family Medicine Adult Medicine; Referring Provider Registered Nurse Neonatal Intensive Care; Visit Provider Podiatrist Foot & Ankle Surgery | DX: S92.354A Nondisplaced fracture of fifth metatarsal bone, right foot, initial encounter for closed fracture (principal); W01.0XXA Fall on same level from slipping, tripping and stumbling without subsequent striking against object, initial encounter | CPT/HCPCS: 99204 ==

== ENCOUNTER 2022-05-01 15:44 | Outpatient (CLI) | payer BC, MEDICAID, SELFPAY | END 2022-05-01 15:45 | disposition home or self-care (01) | LOC: SPT 15:45 | PROVIDERS: PCP Family Medicine Adult Medicine; Visit Provider Podiatrist Foot & Ankle Surgery | DX: Z46.89 Encounter for fitting and adjustment of other specified devices (principal); S92.354D Nondisplaced fracture of fifth metatarsal bone, right foot, subsequent encounter for fracture with routine healing; X58.XXXD Exposure to other specified factors, subsequent encounter | CPT/HCPCS: 97760; 99204; L4361 ==

== ENCOUNTER → 2022-05-07 15:08 | Outpatient (BNVA) | payer BC, MEDICAID, SELFPAY | PROVIDERS: PCP Family Medicine Adult Medicine; Visit Provider Podiatrist Foot & Ankle Surgery | DX: S92.354A Nondisplaced fracture of fifth metatarsal bone, right foot, initial encounter for closed fracture (principal); X58.XXXA Exposure to other specified factors, initial encounter | CPT/HCPCS: 29405 ==

== ENCOUNTER 2022-08-26 23:34 | Emergency (ER) | payer BC, MEDICAID, SELFPAY ==
[2022-08-26 23:50] VITALS: BP 191/118; PULSE 90; RESP 17; TEMP 36.7; O2SAT 96; BMI 44.0
--- NOTE | 2022-08-26 23:57 | W.ED.GENADLT ---
HPI - General Adult General: Chief complaint: General Medical Stated complaint: sore throat Time Seen by Provider: 08/26/22 23:57 History of Present Illness: 41-year-old male patient comes in today with complaints of cough and congestion with worsening sore throat over the last 7 days. Patient appears unwell but not toxic. Patient has a history of hypertension, CPAP use, breathing treatment use, smoking. Associated symptoms: Deny chest pain Review of Systems Const: Reports: body aches Card: Denies: chest pain Resp: Reports: productive cough and wheezing Musc: Denies: neck pain PFSH ED PFSH: Medical History Abnormal nuclear stress test Atherosclerosis of coronary artery Diastasis recti Mixed hyperlipidemia Nondisplaced fracture of fifth right metatarsal bone Obstructive sleep apnea syndrome, severe CPAP Prediabetes Tooth abscess Surgical History History of umbilical hernia repair (10/22/21) laparoscopic Previous back surgery Family History Grandfather Diabetes Grandmother Diabetes Father Hypertension Stroke Mother Hypertension Denies family history of Clotting disorder Dementia Chronic kidney disease (CKD) Anesthesia complication Bleeding disorder Lung disease Cancer Social History Smoking and tobacco status: current every day smoker cigarettes Packs smoked per day: 1 Years cigarettes smoked: 30 Second hand smoke exposure: Yes Alcohol intake: never Desire information about substance/drug rehabilitation?: No Household members: spouse Housing: House Marital status: Current occupational status: unemployed Physical Exam Const: COMMON NORMALS: alert HENMT: COMMON NORMALS: normocephalic HEAD & SCALP: normocephalic TYMPANIC MEMBRANE: TM abnormal TM laterality: bilateral erythematous THROAT: posterior oropharynx abnormal erythema and exudates Neck/C-Spine: COMMON NORMALS: full ROM Resp: COMMON NORMALS: normal respiratory effort AUSCULTATION: wheezes Cardio: COMMON NORMALS: regular rate RATE: regular rate Extremity: COMMON NORMALS: no pedal edema Neuro: SENSORIUM/ORIENTATION: Yes alert Skin: COMMON NORMALS: turgor normal GENERAL SKIN EXAM: turgor normal Course Vital Signs: Vital signs: Vital Signs Temperature 98.1 F 10/10/22 23:50 Pulse Rate 90 08/26/22 23:50 Respiratory Rate 17 08/26/22 23:50 Blood Pressure 191/118 08/26/22 23:50 Pulse Oximetry 96 08/26/22 23:50 Oxygen Delivery Me thod 08/26/22 23:50 MDM - General Adult Medical Decision Making 41-year-old male patient comes in with cough and congestion with sore throat for 1 week now. On exam patient has wheezes throughout lung lal. Posterior pharynx is erythematous with exudate along with some mucopurulent drainage. Differential diagnosis includes upper respiratory infection, acute bronchitis, pneumonia. Lung sounds indicate bronchitis versus pneumonia. We will go ahead and treat for bronchitis of steroid and antibiotic doxycycline. Patient was covered for possible pneumonia with a dose of ceftriaxone. Reviewed exam with patient with recommendations for treatment and follow-up. Patient reported understanding and agreed to plan. Also encourage patient not to use decongestants as this is probably elevating his blood pressure. Discharge Plan Discharge Patient Disposition: Home Clinical Impression: Acute bronchitis Qualifiers: Bronchitis organism: unspecified organism Qualified Code(s): J20.9 - Acute bronchitis, unspecified Condition: Stable Prescriptions: New prednisone 20 mg tablet 20 mg PO BID 5 Days Qty: 10 0RF doxycycline monohydrate 100 mg capsule 100 mg PO BID 7 Days Qty: 14 0RF No Action hydralazine 50 mg tablet 50 mg PO TID Qty: 90 5RF (DME) Cam Boot - Right foot See Rx Instructions .Route .MEDSUPPLY Qty: 1 0RF Rx Instructions: As directed Centrum Silver Men 300-600-300 mcg tablet 2 tab PO DAILY Saccharomyces boulardii [Daily Probiotic (S. boulardii)] PO DAILY hydrocodone-acetaminophen 5-325 mg tablet 1 tab PO Q6H PRN (Reason: pain) 7 Days Qty: 28 0RF furosemide 20 mg tablet 40 mg PO QAM Qty: 60 3RF (DME) Cpap and supplies. AVS: EPAP 10-15 CM, ps 4-8CM, MAX PRESSURE 25 CM, AUTO RATE. See Rx Instructions .Route .MEDSUPPLY Qty: 1 0RF Rx Instructions: As directed amlodipine 10 mg tablet See Rx Instructions .ROUTE .COMPLEX Qty: 90 1RF Dose Instruction: Take 1 tablet by mouth once daily Rx Instructions: Take 1 tablet by mouth once daily sulfamethoxazole-trimethoprim 800-160 mg tablet 1 tab PO BID Qty: 20 0RF losartan 100 mg tablet 100 mg PO DAILY Qty: 90 3RF gemfibrozil 600 mg tablet 600 mg PO DAILY Qty: 90 3RF carvedilol 25 mg tablet 25 mg PO BID Qty: 180 1RF Rx Instructions: must administer with a meal/food Colace 100 mg capsule 100 mg PO BID Qty: 30 0RF Discharge Orders: Discharge ED (Routine); Ordered 08/27/22 Ordered By: Bret Fowler Referrals: Piero Vergara MD [Primary Care Provider] - Discharge Diet: Usual diet Discharge Activity: Increase activity as tolerated Patient Instructions: Acute Bronchitis (ED) Activity Restrictions/Additional Instructions: Continue with respiratory breathing treatments at least 4 times a day or as needed every 4 hours. Drink plenty of fluids. Limit your use of decongestants as this will elevate your blood pressure. Take antibiotic doxycycline 100 mg twice a day for the next 7 days. Use prednisone 20 mg twice a day for the next 5 days. Follow-up with primary care in 3 days. Return to ER for worsening symptoms or new concerns. Coding Level of Care Code ED [employer] for Brent Carranza
[2022-08-27] MEDS: doxycycline 100 mg Tablet PO (00:15)
[2022-08-27] MEDS: dexamethasone 10 mg/mL INJ IM (00:15)
[2022-08-27 00:16] VITALS: BP 188/96; PULSE 90; RESP 17; O2SAT 94
[2022-08-27] MEDS: cefTRIAXone 1,000 MG in lidocaine 1% 2.1 ML 1 MG IM (00:45)
== END 2022-08-27 01:03 | disposition home or self-care (01) ==
PROVIDERS: Emergency Provider Nurse Practitioner Family; PCP Family Medicine Adult Medicine
DX: J20.9 Acute bronchitis, unspecified (principal); I25.10 Atherosclerotic heart disease of native coronary artery without angina pectoris; E78.2 Mixed hyperlipidemia; F17.210 Nicotine dependence, cigarettes, uncomplicated
CPT/HCPCS: 96372; 99284; J0696; J1100

== ENCOUNTER → 2022-11-27 10:38 | Outpatient (BNVA) | payer BC, MEDICAID, SELFPAY | PROVIDERS: PCP Family Medicine Adult Medicine; Visit Provider Registered Nurse Neonatal Intensive Care | DX: R05.9 Cough, unspecified (principal); H66.91 Otitis media, unspecified, right ear | CPT/HCPCS: 87400 ==

== ENCOUNTER 2023-08-08 12:52 | Outpatient (CLI) | payer BC, MEDICAID, SELFPAY ==
--- NOTE | 2023-08-08 13:05 | XR_ITS ---
WS: [id number] XR lumbar spine 2-3V* [id number] REASON FOR EXAM: CHRONIC BILATERAL LOW BACK PAIN W/BILATERAL SCIATICA FINDINGS: Mild rotatory scoliosis convex left. Normal lordosis. No focal vertebral body abnormality. Intervertebral disc spaces are intact and well preserved. No significant listhesis. Facet joints are within normal limits. IMPRESSION: No significant abnormality.
== END 2023-08-08 12:53 | disposition home or self-care (01) ==
PROVIDERS: PCP Nurse Practitioner Family; Visit Provider Nurse Practitioner Family
DX: M54.42 Lumbago with sciatica, left side (principal); M54.41 Lumbago with sciatica, right side
CPT/HCPCS: 72100

== ENCOUNTER 2024-09-10 08:20 | Outpatient (CLI) | payer BC, MEDICAID, SELFPAY ==
--- NOTE | 2024-09-10 08:27 | XR_ITS ---
WS: [id number] Exam: XR lumbar spine f/e only [id number] Date/Time of Exam: 09/10/2024 8:27 AM Reason For Exam: Vertebrogenic low back pain No flexion or extension instability. Minimal spondylosis. Early degenerative narrowing of the L3-4 di sc. Posterior elements are intact. XR/XR lumbar spine f/e only [id number] IMPRESSION: 1. No flexion or extension instability. Minimal degenerative changes.
== END 2024-09-10 08:21 | disposition home or self-care (01) ==
LOC: RAD 08:22
PROVIDERS: PCP Nurse Practitioner Family; Visit Provider Nurse Practitioner
DX: M54.51 Vertebrogenic low back pain (principal)
CPT/HCPCS: 72120

== ENCOUNTER 2025-09-09 08:46 | Outpatient (CLI) | payer BC, MEDICAID, SELFPAY ==
--- NOTE | 2025-09-09 08:53 | USCV_ITS ---
Alli Parisi Age: 44 Gender: M : 1980 Exam Date: 09/09/2025 09:13 Ordering Phys: Aarti Lynn Technologist: JACK Exam Location: [facility] [place] Indication: chf BP: 152 / 84 HR: 54 Rhythm: Sinus Technical Quality: Adequate MEASUREMENTS (Male / Female) Normal Values 2D ECHO LV Diastolic Diameter PLAX 6.9 cm 4.2 - 5.9 / 3.9 - 5.3 cm IVS Diastolic Thickness 1.1 cm 0.6 - 1.0 / 0.6 - 0.9 cm IVS Systolic Thickness 1.3 cm LVPW Diastolic Thickness 1.2 cm 0.6 - 1.0 / 0.6 - 0.9 cm LVPW Systolic Thickness 1.5 cm LVOT Diameter 2.1 cm LV Ejection Fraction 2D Teich 32.8 % LV Ejection Fraction MOD 4C 58.7 % LV Ejection Fraction MOD 2C 49.3 % LV Ejection Fraction 2C AL 53.5 % LA Diameter 3.4 cm RA Systolic Volume 4C AL 65.8 ml RA Systolic Volume 4C MOD 65.5 ml LA Sys Volume AL 78.0 cm cubed LA Sys Volume Index AL 33.9 cm cubed/m squared Aorta at Sinotubular Diameter 2.8 cm IVC Diameter 1.7 cm M-MODE LA Ao Ratio MM 1.1 AV Cusp Separation MM 1.9 cm DOPPLER AV Peak Velocity 131.0 cm/s LVOT Peak Velocity 126.0 cm/s AV Area Cont Eq vti 3.8 cm squared AV Area Cont Eq pk 3.4 cm squared MV Peak Velocity 72.0 cm/s MV Area PHT 3.3 cm squared Mitral E to A Ratio 0.8 TV Peak Velocity 186.5 cm/s TR Peak Velocity 259.0 cm/s TR Peak Gradient 26.8 mmHg TV Peak E Velocity 72.0 cm/s PV Peak Velocity 101.0 cm/s FINDINGS Left Ventricle Normal left ventricular size, systolic function and wall thickness, with no regional wall motion abnormalities. Left ventricular ejection fraction is estimated at 60 %. Grade I/IV diastolic dysfunction (abnormal relaxation filling pattern), normal to mildly elevated filling pressures. Right Ventricle Normal right ventricular size and systolic function. Right Atrium Normal right atrial size. Left Atrium Mildly increased left atrial size. IA Septum Normal appearance of the interatrial septum. Mitral Valve Structurally normal mitral valve. No mitral valve stenosis. Trace to mild mitral valve regurgitation. Aortic Valve Normal aortic valve structure. No aortic valve stenosis or regurgitation. Tricuspid Valve Normal tricuspid valve structure. No tricuspid valve stenosis or regurgitation. Normal pulmonary pressure. Pulmonic Valve Normal pulmonic valve structure. No pulmonic valve stenosis or regurgitation. Pericardium No pericardial effusion. Aorta Normal diameter of the aortic root and ascending thoracic aorta. IVC Normal IVC diameter. CONCLUSIONS Normal left ventricular size, systolic function and wall thickness, with no regional wall motion abnormalities. Left ventricular ejection fraction is estimated at 60 %. Grade I/IV diastolic dysfunction (abnormal relaxation filling pattern), normal to mildly elevated filling pressures. Structurally normal mitral valve. No mitral valve stenosis. Trace to mild mitral valve regurgitation. There is no pericardial effusion. Right atrial pressure is around 5 mm of mercury. Del Flores MD (Electronically Signed) Final Date: 12 September 2025 12:46 S
== END 2025-09-09 08:47 | disposition home or self-care (01) ==
LOC: RAD 08:48
PROVIDERS: PCP Nurse Practitioner Family; Visit Provider Nurse Practitioner Family
DX: I50.32 Chronic diastolic (congestive) heart failure (principal); R93.1 Abnormal findings on diagnostic imaging of heart and coronary circulation; I51.7 Cardiomegaly
CPT/HCPCS: 93306